=== PATIENT | male | born 1990 | race Caucasian/White ===

== ENCOUNTER → 2019-07-07 12:52 | Outpatient (CLI) | payer OTHER, SELFPAY ==
[2014-06-08 09:50] VITALS: BMI 25.7
[2019-07-07 14:12] LABS: T4 Free Direct 1.13 ng/dL (0.76-1.46); Thyroid Stim Hormone (TSH) 2.34 uIU/mL (0.358-3.74)
[2019-07-07 17:22] LABS: Chlamydia Trachomatis by PCR Negative (Negative); Neisserai gonorrhoeae by PCR Negative (Negative); Probe Check PASS; Sample Adequacy Control PASS; Specimen Processing Control PASS
[2019-07-10 17:43] LABS: Anti-Thyroglobulin AB < 1.0 IU/mL (0.0-0.9); Thyroid Peroxidase AB 10 IU/mL (0-34)
[2019-07-10 17:44] LABS: Thyroglobulin, Serum Qt. 7.5 ng/mL (1.4-29.2)
== END ==
PROVIDERS: Family Provider Internal Medicine; PCP Internal Medicine; Referring Provider Family Medicine; Visit Provider Family Medicine
DX: K90.0 Celiac disease (principal); N41.9 Inflammatory disease of prostate, unspecified
CPT/HCPCS: 36415; 84432; 84439; 84443; 86376; 86800; 87086; 87491; 87591

== ENCOUNTER → 2020-01-02 | Outpatient (CLI) | payer OTHER, SELFPAY ==
[2014-06-08 09:50] VITALS: BMI 25.7
== END | disposition home or self-care (01) ==
PROVIDERS: PCP Internal Medicine; Visit Provider Nurse Practitioner Adult Health
DX: N34.1 Nonspecific urethritis (principal)